=== PATIENT | male | born 1990 | race African-American/Black ===

== ENCOUNTER 2017-11-06 15:19 | Emergency (ER) | payer OTHER ==
--- NOTE | 2017-11-06 16:00 | ED Physician Documentation ---
PD HPI MALE - Stated complaint Stated Complaint: MALE - Chief complaint Chief Complaint: General - History obtained from History obtained from: Patient - History of Present Illness Timing - onset: How many days ago (few) Timing - duration: Days Timing - details: Gradual onset, Still present Associated symptoms: Dysuria, Urinary frequency, Testiclar pain. No: Genital sore / lesion, Scrotal swelling, Abdominal pain PD HPI MALE CONTRIB FACTORS: Sexually active, Exposed to STD (possibly, his partner has dysuria and some vaginal discharge as well.) Similar symptoms before: Diagnosis (had chlamydia in the past) Review of Systems Constitutional: denies: Fever, Chills Throat: denies: Sore throat, Swollen tonsils GI: denies: Nausea, Vomiting, Diarrhea : reports: Dysuria, Testicular pain. denies: Discharge, Testicular mass Skin: denies: Rash, Lesions PD PAST MEDICAL HISTORY - Past Medical History Cardiovascular: None Respiratory: None Neuro: None : None Psych: ADD/ADHD - Past Surgical History Past Surgical History: Yes - Present Medications Home Medications: Ambulatory Orders Medication Instructions Recorded Confirmed Dextroamphetamine/Amphetamine 1 tab BID 01/29/16 01/29/16 [Adderall 10 mg Tablet] Metronidazole [Flagyl] 500 mg PO BID #14 tablet 11/06/17 - Allergies Allergies/Adverse Reactions: Allergies Allergy/AdvReac Type Severity Reaction Status Date / Time No Known Drug Allergies Allergy Verified 09/05/15 10:57 - Social History Does the pt smoke?: Yes Smoking Status: Current every day smoker Does the pt drink ETOH?: Yes Does the pt have substance abuse?: No - Immunizations Immunizations are current?: Yes PD ED PE NORMAL - Vitals Vital signs reviewed: Yes - General General: Alert and oriented X 3, No acute distress, Well developed/nourished - HEENT HEENT: Pharynx benign - Abdomen Abdomen: Soft, Non tender - Male Male : Deferred - Rectal Rectal: Deferred - Back Back: No CVA TTP Results - Vitals Vitals: Oxygen O2 Source Room air - Labs Labs: Laboratory Tests 11/06/17 16:05 Urine Color YELLOW Urine Clarity CLEAR Urine pH 6.0 Ur Specific Aragon >=1.030 H Urine Protein NEGATIVE Urine Glucose (UA) NEGATIVE Urine Ketones NEGATIVE Urine Occult Blood NEGATIVE Urine Nitrite NEGATIVE Urine Bilirubin NEGATIVE Urine Urobilinogen 0.2 (NORMAL) Ur Leukocyte Esterase NEGATIVE Ur Microscopic Review NOT INDICATED Urine Culture Comments NOT INDICATED PD MEDICAL DECISION MAKING - ED course Complexity details: considered differential (suggestive of chlamydia, but his partner has clue cells on vaginal exam, so will treat him with flagyl as well. ) , d/w patient Departure - Departure Disposition: 01 Home, Self Care Clinical Impression: Dysuria, Urethritis Condition: Stable Record reviewed to determine appropriate education?: Yes Follow-Up: RYAN Thomas [Provider Group] Prescriptions: Metronidazole [Flagyl] 500 mg PO BID #14 tablet Comments: Your treated for both gonorrhea and chlamydia. See if your symptoms improve. Your urine test did not show any signs of infection in the bladder itself. Your partner has bacterial vaginosis in your symptoms may be coming from that rather than chlamydia let us say. So we should treat with Flagyl twice daily for a week.Drink lots of fluids. Tylenol or ibuprofen if needed for discomfort. The symptoms should improve over the next several days to week. Discharge Date/Time: 11/06/17 17:57
[2017-11-06 16:16] LABS: BILIRUBIN,URINE NEGATIVE (NEGATIVE); GLUCOSE, URINE (UA) NEGATIVE (NEGATIVE); KETONES,URINE (UA) NEGATIVE (NEGATIVE); LEUKOCYTE ESTERASE, URINE NEGATIVE (NEGATIVE); NITRITE,URINE NEGATIVE (NEGATIVE); OCCULT BLOOD,URINE NEGATIVE (NEGATIVE); PROTEIN,URINE NEGATIVE (NEGATIVE); UROBILINOGEN,URINE 0.2 (NORMAL) E.U./dL (NORMAL)
[2017-11-06 16:25] LABS: CLARITY,URINE CLEAR (CLEAR)
[2017-11-06] MEDS ORDERED: AZITHROMYCIN 250 MG TABLET PO STA (17:05)
[2017-11-06] MEDS ORDERED: LIDOCAINE 1% 2 ML VIAL SUBQ ONE (17:05)
[2017-11-06] MEDS ORDERED: cefTRIAXone 500 MG VIAL IM STA (17:05)
[2017-11-06 17:48] VITALS: BP 133/82
[2017-11-08 15:27] LABS: HIV AG/AB 4TH GEN NON-REACTIVE (NON-REACTIVE)
== END 2017-11-06 17:57 | disposition home or self-care (01) ==
LOC: ED 15:19
DX: N34.2 Other urethritis (principal); R30.0 Dysuria; F17.200 Nicotine dependence, unspecified, uncomplicated
CPT/HCPCS: 36415; 81003; 86780; 87389; 96372; 99283; A9270; 81001; 87086; 87491; 87591